=== PATIENT | male | born 1995 | race Caucasian/White ===

== ENCOUNTER 2018-01-10 09:07 | Emergency (ER) | payer SELFPAY ==
[2018-01-10] MEDS ORDERED: Lidocaine 1% w/Epinephrine 1:100K 30 ML VIAL ONE (09:25)
[2018-01-10] MEDS ORDERED: Lidocaine 1% 20 ML MDV ONE (09:26)
== END 2018-01-10 09:47 | disposition home or self-care (01) ==
LOC: MADERS 09:07
DX: H60.02 Abscess of left external ear (principal); I10 Essential (primary) hypertension
CPT/HCPCS: 10060; 99406; J2001

== ENCOUNTER 2019-06-01 18:02 | Emergency (ER) | payer SELFPAY ==
[2019-06-01] MEDS ORDERED: Lidocaine 1% 20 ML MDV ONE (18:43)
[2019-06-01] MEDS ORDERED: cefTRIAXone\\ROCEPHIN 1 GM VIAL ONE (18:43)
[2019-06-01] MEDS ORDERED: Acetaminophen/Codeine 30-300mg Tablet ONE (18:46)
== END 2019-06-01 19:24 | disposition home or self-care (01) ==
LOC: MADERS 18:02
DX: K04.7 Periapical abscess without sinus (principal); L03.211 Cellulitis of face; K02.9 Dental caries, unspecified; E66.9 Obesity, unspecified; I10 Essential (primary) hypertension; F17.210 Nicotine dependence, cigarettes, uncomplicated
CPT/HCPCS: 96372; 99282; J0696; J2001

== ENCOUNTER 2019-06-02 01:24 | Emergency (ER) | payer SELFPAY ==
[2019-06-02 02:20] LABS: #Basophils 0.1 thou/uL (0.0-0.2); #Eosinphils 0.4 thou/uL (0.0-0.7); #Lymphocytes 2.6 thou/uL (1.20-3.40); #Monocytes 0.7 thou/uL (0.11-0.59); #Neutrophils 7.4 thou/uL (1.40-6.50); %Basophils 0.9 % (0.0-1.0); %Eosinophils 3.9 % (0.0-10.0); %Monocytes 5.8 % (0.0-10.0); %Neutrophils 66.4 % (42.0-75.0); Hemoglobin 14.8 g/dL (14.0-18.0); Mean Corpuscular HGB CONC 32.2 g/dL (32.0-36.0); Mean Corpuscular Hemoglobin 28.8 pg (27.0-31.0); Mean Corpuscular Volume 89.5 fL (78.0-98.0); Mean Platelet Volume 6.6 fL (7.4-10.4); Platelet Count 260 thou/uL (130-400); RBC Distribution Width 11.6 % (11.5-14.5); Red Blood Cell (RBC) Count 5.12 mill/uL (4.70-6.10); White Blood Cell (WBC) Count 11.2 thou/uL (4.8-10.8)
[2019-06-02] MEDS ORDERED: Clindamycin/D5W 600 mg/50 ml Premix Bag ONE (02:21)
[2019-06-02 02:36] LABS: Anion Gap 14 mmol/L (10-20); BUN (Urea Nitrogen) 8 mg/dL (8.9-20.6); Calc. Creatinine Clearance 0 mL/min (70-130); Calcium 9.2 mg/dL (7.8-10.44); Carbon Dioxide 25 mmol/L (22-29); Chloride 103 mmol/L (98-107); Estimated GFR-MDRD Greater than 90; Glucose 123 mg/dL (70-105); Sodium 138 mmol/L (136-145)
[2019-06-02] MEDS ORDERED: Fentanyl 100 MCG/2 ML VIAL ONE (03:47)
[2019-06-02] MEDS ORDERED: Sodium Chloride 0.9% 1,000 ML BAG ONE (07:11)
== END 2019-06-02 07:43 | disposition home or self-care (01) ==
LOC: MADERS 01:24
DX: K04.7 Periapical abscess without sinus (principal); L03.211 Cellulitis of face; K02.9 Dental caries, unspecified; I10 Essential (primary) hypertension; E66.9 Obesity, unspecified; F17.210 Nicotine dependence, cigarettes, uncomplicated
CPT/HCPCS: 80048; 85025; 96365; 96375; J3010; J3490; J7050

== ENCOUNTER 2019-06-02 08:49 | Emergency (ER) | payer SELFPAY ==
[2019-06-02] MEDS ORDERED: Ketorolac Tromethamine 30 MG/ML VIAL ONE (09:47)
[2019-06-02] MEDS ORDERED: Ondansetron PF 4 MG/2 ML Vial ONE (09:47)
[2019-06-02] MEDS ORDERED: Sodium Chloride 0.9% 500 ML ONE (09:59)
[2019-06-02] MEDS ORDERED: Iopamidol 370 76% 100 ML VIAL ONE (10:05)
[2019-06-02 10:12] LABS: #Basophils 0.2 thou/uL (0.0-0.2); #Eosinphils 0.5 thou/uL (0.0-0.7); #Lymphocytes 3.5 thou/uL (1.20-3.40); %Basophils 1.8 % (0.0-1.0); %Eosinophils 3.6 % (0.0-10.0); %Lymphocytes 26.5 % (21.0-51.0); %Monocytes 7.6 % (0.0-10.0); %Neutrophils 60.5 % (42.0-75.0); Mean Corpuscular HGB CONC 31.3 g/dL (32.0-36.0); Mean Corpuscular Hemoglobin 28.3 pg (27.0-31.0); Mean Corpuscular Volume 90.5 fL (78.0-98.0); Mean Platelet Volume 6.7 fL (7.4-10.4); Platelet Count 263 thou/uL (130-400); RBC Distribution Width 11.6 % (11.5-14.5); White Blood Cell (WBC) Count 13.3 thou/uL (4.8-10.8)
[2019-06-02 10:22] LABS: ALT (SGPT) 35 U/L (8-55); AST (SGOT) 17 U/L (5-34); Albumin 4.2 g/dL (3.5-5.0); Alkaline Phosphatase 71 U/L (40-110); Anion Gap 15 mmol/L (10-20); BUN (Urea Nitrogen) 7 mg/dL (8.9-20.6); Bilirubin, Total 0.4 mg/dL (0.2-1.2); Calc. Creatinine Clearance 0 mL/min (70-130); Calcium 9.3 mg/dL (7.8-10.44); Carbon Dioxide 22 mmol/L (22-29); Chloride 103 mmol/L (98-107); Estimated GFR-MDRD Greater than 90; Globulin 3.4 g/dL (2.4-3.5); Glucose 99 mg/dL (70-105); Potassium 3.8 mmol/L (3.5-5.1); Protein, Total 7.6 g/dL (6.0-8.3); Sodium 136 mmol/L (136-145)
--- NOTE | 2019-06-02 10:56 | CT ---
CT MAXILLOFACIAL WITH CONTRAST: Date: 06/02/2019 HISTORY: 23-year-old male with right facial cellulitis from toothache, with fever. FINDINGS: There is an approximately 1 x 1 x 0.8 cm periapical lucency of bone in the right maxilla, around the roots of the right upper second incisor and right upper canine tooth. Irregularity of bony margins an d absence of thin cortical bone lining this lucency indicates that this is a periapical abscess rathe r than periapical (radicular) cyst. There is prominent soft tissue thickening of the right buccal space involving right maxillary gingiva , and this extends superiorly to involve cellulitis extension into the right medial paranasal anterio r premaxillary soft tissues. There is extensive severe edema throughout the right cheek subcutaneous fat contiguous with the edema of the buccal space, causing right skin thickening. There is a tiny defect in the enamel of the right upper second incisor suggestive of caries. Bilateral thickening of palatine tonsils. Multiple enlarged, reactive right Level IB and right Level II cervical lymph nodes. Otherwise, no pathology involving parapharyngeal, parotid, submandibular, sublingual, and retropharyn geal spaces. Moderate to severe polypoid circumferential mucosal thickening throughout the right maxillary sinus. Small mucus retention cyst at floor of left maxillary sinus. Nasal cavity, bilateral ethmoid air cells, bilateral frontal sinuses, and sphenoid sinus are grossly clear. IMPRESSION: 1. Severe right superficial facial and right buccal space cellulitis. 2. Periapical abscess around the roots of teeth #7 and #6. 3. Questionable dental caries vs chipped tooth involving tooth #7. 4. Moderate mucosal disease involving right maxillary sinus. POS: [facility]
[2019-06-02] MEDS ORDERED: Morphine 4 MG/ML VIAL ONE (12:37)
== END 2019-06-02 13:45 | disposition short-term general hospital (02) ==
LOC: MADERS 08:49
DX: L03.211 Cellulitis of face (principal); K04.7 Periapical abscess without sinus; K03.81 Cracked tooth; K02.9 Dental caries, unspecified; I10 Essential (primary) hypertension; E66.9 Obesity, unspecified; F17.210 Nicotine dependence, cigarettes, uncomplicated
CPT/HCPCS: 36415; 70487; 86140; 87040; 96365; 96366; 96375; J1885; J2270; J2405; J3370; J7050; Q9967

== ENCOUNTER 2019-07-24 23:52 | Emergency (ER) | payer SELFPAY ==
[2019-07-25] MEDS ORDERED: Amoxicillin/Potassium Clav 875 MG TAB ONE (00:20)
== END 2019-07-25 00:23 | disposition home or self-care (01) ==
LOC: MADERS 23:52
DX: K04.7 Periapical abscess without sinus (principal); I10 Essential (primary) hypertension; E66.9 Obesity, unspecified; F17.210 Nicotine dependence, cigarettes, uncomplicated
CPT/HCPCS: 99282

== ENCOUNTER 2019-08-22 00:34 | Emergency (ER) | payer SELFPAY ==
[2019-08-22] MEDS ORDERED: Lidocaine 2% w/Epinephrine 1:200K 20 ML VIAL ONE (00:47)
[2019-08-22] MEDS ORDERED: Ketorolac Tromethamine 60 MG/2 ML VIAL ONE (01:05)
[2019-08-22] MEDS ORDERED: Clindamycin 150 MG CAP ONE (01:05)
[2019-08-22] MEDS ORDERED: HYDROcodone/Acetaminophen 10/325 mg Tablet ONE (01:05)
[2019-08-22] MEDS ORDERED: Lidocaine 1% 20 ML MDV ONE (01:06)
== END 2019-08-22 01:40 | disposition home or self-care (01) ==
LOC: MADERS 00:34
DX: L05.01 Pilonidal cyst with abscess (principal); L03.317 Cellulitis of buttock; I10 Essential (primary) hypertension; E66.9 Obesity, unspecified; F17.210 Nicotine dependence, cigarettes, uncomplicated
CPT/HCPCS: 10081; 96372; J1885; J2001

== ENCOUNTER 2020-01-12 03:27 | Emergency (ER) | payer OTHER, SELFPAY ==
[2020-01-12 18:54] LABS: SARS-CoV-2 MS2 Positive; SARS-CoV-2 N Gene Negative; SARS-CoV-2 S Gene Negative; SARS-CoV-2 by NAA Not Detected (NotDetected); SARS-CoV-2 orf1ab Negative
== END 2020-01-12 04:15 | disposition home or self-care (01) ==
LOC: MADERS 03:27
DX: R05 Cough (principal); R50.9 Fever, unspecified; Z20.828 Contact with and (suspected) exposure to other viral communicable diseases; F17.210 Nicotine dependence, cigarettes, uncomplicated; I10 Essential (primary) hypertension; E66.9 Obesity, unspecified
CPT/HCPCS: 87635; 99283; U0003

== ENCOUNTER 2020-02-11 04:34 | Emergency (ER) | payer OTHER, SELFPAY ==
[2020-02-11] MEDS ORDERED: Lidocaine 1% w/Epinephrine 1:100K 20 ML VIAL ONE (04:43)
[2020-02-11] MEDS ORDERED: Amoxicillin/Potassium Clav 875 MG TAB ONE (05:30)
== END 2020-02-11 05:13 | disposition home or self-care (01) ==
LOC: MADERS 04:34
DX: L05.91 Pilonidal cyst without abscess (principal); I10 Essential (primary) hypertension; E66.9 Obesity, unspecified; F17.210 Nicotine dependence, cigarettes, uncomplicated
CPT/HCPCS: 10080

== ENCOUNTER 2020-05-08 23:41 | Emergency (ER) | payer SELFPAY ==
[2020-05-09] MEDS ORDERED: Diazepam 10 MG/2 ML SYRINGE ONE (00:29)
[2020-05-09] MEDS ORDERED: Ketorolac Tromethamine 30 MG/ML VIAL ONE (00:29)
[2020-05-09] MEDS ORDERED: Sodium Chloride 0.9% 1,000 ML ONE (00:29)
[2020-05-09 00:33] LABS: #Basophils 0.1 thou/uL (0.0-0.2); #Eosinphils 0.5 thou/uL (0.0-0.7); #Lymphocytes 3.6 thou/uL (1.20-3.40); #Monocytes 0.4 thou/uL (0.11-0.59); #Neutrophils 4.7 thou/uL (1.40-6.50); %Basophils 1.5 % (0.0-1.0); %Eosinophils 5.3 % (0.0-10.0); %Lymphocytes 38.7 % (21.0-51.0); %Monocytes 4.2 % (0.0-10.0); %Neutrophils 50.2 % (42.0-75.0); Hemoglobin 16.2 g/dL (14.0-18.0); Mean Corpuscular HGB CONC 33.2 g/dL (32.0-36.0); Mean Corpuscular Hemoglobin 29.5 pg (27.0-31.0); Mean Corpuscular Volume 88.7 fL (78.0-98.0); Mean Platelet Volume 6.8 fL (7.4-10.4); Platelet Count 279 thou/uL (130-400); RBC Distribution Width 11.2 % (11.5-14.5); Red Blood Cell (RBC) Count 5.49 mill/uL (4.70-6.10); White Blood Cell (WBC) Count 9.3 thou/uL (4.8-10.8)
[2020-05-09 00:38] LABS: Bilirubin Negative (Negative); Blood, Urine Negative (Negative); Clarity Clear (Clear); Glucose, Urine (Dipstick) Negative (Negative); Ketone, Urine Negative (Negative); Leukocyte Negative (Negative); Nitrite Negative (Negative); Protein, Urine (Dipstick) Negative (Neg-Trace); Specific Gravity, Urine 1.025 (1.005-1.030); Urobilinogen 0.2 mg/dL (Less than 2); pH, Urine 5.5 (5.0-9.0)
[2020-05-09 00:49] LABS: Anion Gap 17 mmol/L (10-20); BUN (Urea Nitrogen) 10 mg/dL (8.9-20.6); Calc. Creatinine Clearance 0 mL/min (70-130); Calcium 9.3 mg/dL (7.8-10.44); Carbon Dioxide 19 mmol/L (22-29); Chloride 106 mmol/L (98-107); Glucose 132 mg/dL (70-105); Sodium 138 mmol/L (136-145)
[2020-05-09] MEDS ORDERED: Morphine 4 MG/ML VIAL ONE (01:13)
== END 2020-05-09 01:50 | disposition short-term general hospital (02) ==
LOC: MADERS 23:41
DX: R10.9 Unspecified abdominal pain (principal); R10.32 Left lower quadrant pain; I10 Essential (primary) hypertension; E66.9 Obesity, unspecified; F17.210 Nicotine dependence, cigarettes, uncomplicated
CPT/HCPCS: 80048; 81003; 85025; 96374; 96375; J1885; J2270; J3360; J7050

== ENCOUNTER 2020-12-28 13:40 | Emergency (ER) | payer OTHER, SELFPAY ==
[2020-12-29 09:10] LABS: SARS-CoV-2 PCR by NAA Not Detected (NotDetected)
== END 2020-12-28 14:20 | disposition home or self-care (01) ==
LOC: MADERS 13:40
DX: R11.2 Nausea with vomiting, unspecified (principal); R07.89 Other chest pain; Z20.822 Contact with and (suspected) exposure to COVID-19; I10 Essential (primary) hypertension; E66.9 Obesity, unspecified; F17.210 Nicotine dependence, cigarettes, uncomplicated
CPT/HCPCS: 99283; U0003; U0005

== ENCOUNTER 2021-02-20 13:39 | Emergency (ER) | payer OTHER ==
[2021-02-20] MEDS ORDERED: predniSONE 20 MG TAB ONE (15:36)
== END 2021-02-20 15:50 | disposition home or self-care (01) ==
LOC: MADERS 13:39
DX: J02.9 Acute pharyngitis, unspecified (principal); I10 Essential (primary) hypertension; E66.9 Obesity, unspecified; F17.210 Nicotine dependence, cigarettes, uncomplicated
CPT/HCPCS: 87081; 87430; 99283; J7512

== ENCOUNTER 2021-10-02 15:51 | Emergency (ER) | payer OTHER | END 2021-10-02 16:12 | disposition home or self-care (01) | LOC: MADERS 15:51 | DX: R51.9 Headache, unspecified (principal); I10 Essential (primary) hypertension; F17.210 Nicotine dependence, cigarettes, uncomplicated; F17.290 Nicotine dependence, other tobacco product, uncomplicated; E66.9 Obesity, unspecified; Z68.45 Body mass index [BMI] 70 or greater, adult | CPT/HCPCS: 99283 ==